=== PATIENT | male | born 1970 | race Caucasian/White ===

== ENCOUNTER 2017-03-17 00:58 | Inpatient (IN) | payer SELFPAY ==
[~2017-03-17] VITALS: Ht 185.4 cm; Wt 141.1 kg
[2017-03-17] MEDS ORDERED: ASPIRIN 81MG TABLET PO STA (01:32)
[2017-03-17 01:55] LABS: DIFFERENTIAL COMMENT 0; EOSINOPHILS % 6.9 % (0.0-5.0); HEMATOCRIT. 34.8 % (42.0-52.0); HEMOGLOBIN. 11.1 g/dL (14.0-18.0); LYMPHOCYTES % 23.5 % (20.0-50.0); MEAN CORPUSCULAR HEMOGLOBIN 25.1 pg (28.0-32.0); MEAN CORPUSCULAR HGB CONC 31.9 g/dL (31.0-37.0); MEAN CORPUSCULAR VOLUME 78.6 fL (80.0-94.0); MEAN PLATELET VOLUME 9.4 fl (7.4-10.4); MONOCYTES % 9.5 % (2.0-8.0); NEUTROPHILS % 59.1 % (40.0-76.0); PLATELET 177 x1000/uL (130-400); RED BLOOD CELL COUNT 4.42 mill/uL (4.7-6.1); RED CELL DISTRIBUTION WIDTH 19.9 % (11.6-14.6); WHITE BLOOD COUNT 3.9 x1000/uL (4.5-11.0)
[2017-03-17 02:02] LABS: INR 1.1; PARTIAL THROMBOPLASTIN TIME 25.4 sec (24.0-34.0); PROTHROMBIN TIME 11.4 sec
[2017-03-17 02:11] LABS: ALANINE AMINOTRANSFERASE 27 IU/L (13-61); ALBUMIN 4.1 g/dL (3.4-5.0); ANION GAP 12; CALCIUM 8.7 mg/dL (8.5-10.1); CARBON DIOXIDE 26 mEq/L (21-32); CHLORIDE 105 mEq/L (98-107); INDEX HEMOLYSI 1 (1-3); INDEX ICTERIC 1 (1-4); INDEX LIPEMIC 1 (1-3); TROPONIN I < 0.02 ng/mL (0.00-0.04); UREA NITROGEN BLOOD 19 mg/dL (7-21); eGFR > 60 mL/min (>60)
[2017-03-17] MEDS ORDERED: NITROGLYCERIN 0.4MG TABLET SL SL PRN (04:30)
[2017-03-17] MEDS ORDERED: ONDANSETRON HCL 4MG/2ML VIAL IV ONE (04:30)
[2017-03-17] MEDS ORDERED: MORPHINE SULFATE 4 MG/ML CPJ (NOT FOR IM USE) IV ONE (04:30)
[2017-03-17 07:45] VITALS: BP 129/78
[2017-03-17 08:00] VITALS: BP 129/78
[2017-03-17] MEDS ORDERED: ISOS60TA4 PO (08:14)
[2017-03-17] MEDS ORDERED: METO50TA5 PO (08:15)
[2017-03-17] MEDS ORDERED: LOV40 SQ (08:16)
[2017-03-17] MEDS ORDERED: WARF10TA21 PO (08:17)
[2017-03-17] MEDS ORDERED: ATOR80TA76 PO (08:17)
[2017-03-17] MEDS: METOPROLOL TARTRATE 25MG TABLET PO SCH (10:00)
[2017-03-17] MEDS ORDERED: ACETAMINOPHEN 325MG TABLET PO PRN (10:15)
[2017-03-17] MEDS ORDERED: DIPHENHYDRAMINE 50MG/ML VIAL IV PRN (10:15)
[2017-03-17] MEDS ORDERED: ONDANSETRON HCL 4MG/2ML VIAL IV PRN (10:15)
[2017-03-17] MEDS ORDERED: MAGNESIUM/ALUMINUM HYDROXIDE/SIMETHICONE 30ML UDC PO PRN (10:15)
[2017-03-17] MEDS ORDERED: CLONIDINE 0.1MG TABLET PO PRN (10:15)
[2017-03-17] MEDS ORDERED: SODIUM CHLORIDE 0.9% 10ML VIAL ONE (10:35)
[2017-03-17] MEDS ORDERED: IOHEXOL-350 100 ML BOTTLE ONE (10:35)
[2017-03-17] MEDS: ISOSORBIDE MONONITRATE 60MG TABLET SR 24HR PO SCH (10:37)
[2017-03-17] MEDS: ENOXAPARIN 150MG/ML SYR SUBCUT SCH ×2 (10:38→21:17)
[2017-03-17 12:00] VITALS: BP 92/43
[2017-03-17 12:25] LABS: MAGNESIUM 2.1 mg/dL (1.8-2.4)
[2017-03-17] MEDS: SODIUM CHLORIDE 0.9% INJ 3ML FLUSH IVF SCH ×2 (14:00→21:17)
[2017-03-17] MEDS ORDERED: REGADENOSON 0.4 MG/5 ML IV NR (14:30)
[2017-03-17] MEDS: MORPHINE SULFATE 4 MG/ML CPJ (NOT FOR IM USE) IV PRN (15:57)
[2017-03-17 16:00] VITALS: BP 111/67
[2017-03-17] MEDS ORDERED: WARFARIN SODIUM 10MG TABLET PO NR (18:00)
[2017-03-17 20:00] VITALS: BP 111/53
[2017-03-17] MEDS ORDERED: TEMAZEPAM 15MG CAPSULE PO PRN (21:15)
[2017-03-17] MEDS: ATORVASTATIN CALCIUM 40MG TABLET PO SCH (21:16)
[2017-03-18] VITALS: BP 90/59
[2017-03-18 04:00] VITALS: BP 107/71
[2017-03-18] MEDS: MORPHINE SULFATE 4 MG/ML CPJ (NOT FOR IM USE) IV PRN ×2 (04:33→17:04)
[2017-03-18 05:44] LABS: INR 1.1; PROTHROMBIN TIME 11.4 sec
[2017-03-18] MEDS: SODIUM CHLORIDE 0.9% INJ 3ML FLUSH IVF SCH ×3 (06:10→20:41)
[2017-03-18 06:27] LABS: ANION GAP 12; CALCIUM 8.2 mg/dL (8.5-10.1); CARBON DIOXIDE 28 mEq/L (21-32); CHLORIDE 104 mEq/L (98-107); HDL CHOLESTEROL 33 mg/dL (40-59); INDEX HEMOLYSI 1 (1-3); INDEX ICTERIC 1 (1-4); INDEX LIPEMIC 1 (1-3); LDL CHOLESTEROL 60 mg/dL (5-100); MAGNESIUM 2.2 mg/dL (1.8-2.4); NT PRO B-TYPE NATRIURETIC PEP 33 pg/mL (5-125); TRIGLYCERIDE 43 mg/dL (0-150); TROPONIN I < 0.02 ng/mL (0.00-0.04); UREA NITROGEN BLOOD 18 mg/dL (7-21); eGFR > 60 mL/min (>60)
[2017-03-18 06:46] LABS: CLARITY URINE CLEAR (CLEAR); COLOR URINE YELLOW (YELLOW); GLUCOSE URINE NEGATIVE (NEGATIVE); KETONES URINE NEGATIVE (NEGATIVE); LEUKOCYTE ESTERASE URINE NEGATIVE (NEGATIVE); NITRITE URINE NEGATIVE (NEGATIVE); OCCULT BLOOD URINE NEGATIVE (NEGATIVE); PH URINE 5.5 (4.5-8.0); PROTEIN URINE NEGATIVE (NEGATIVE); SPECIFIC GRAVITY URINE 1.021 (1.005-1.030); UROBILINOGEN URINE 0.2 E.U./dL (0.2-1.0)
[2017-03-18 06:53] LABS: BASOPHILS % 0.6 % (0.0-2.0); DIFFERENTIAL COMMENT 0; EOSINOPHILS % 8.7 % (0.0-5.0); HEMATOCRIT. 32.7 % (42.0-52.0); HEMOGLOBIN. 10.5 g/dL (14.0-18.0); LYMPHOCYTES % 25.2 % (20.0-50.0); MEAN CORPUSCULAR HEMOGLOBIN 24.9 pg (28.0-32.0); MEAN CORPUSCULAR VOLUME 77.8 fL (80.0-94.0); MEAN PLATELET VOLUME 10.1 fl (7.4-10.4); MONOCYTES % 11.7 % (2.0-8.0); NEUTROPHILS % 53.8 % (40.0-76.0); PLATELET 157 x1000/uL (130-400); RED CELL DISTRIBUTION WIDTH 19.7 % (11.6-14.6); WHITE BLOOD COUNT 3.3 x1000/uL (4.5-11.0)
[2017-03-18 07:18] LABS: *AMPHETAMINES SCREEN URINE NEGATIVE (NEGATIVE); *BARBITURATES SCREEN URINE NEGATIVE (NEGATIVE); *BENZODIAZEPINES SCREEN URINE NEGATIVE (NEGATIVE); *COCAINE SCREEN URINE NEGATIVE (NEGATIVE); CANNABINOID URINE SCREEN NEGATIVE (NEGATIVE); ECSTASY MDMA SCREEN URINE NEGATIVE (NEGATIVE); METHADONE URINE SCREEN NEGATIVE (NEGATIVE); OPIATES URINE SCREEN PRESUMTIVE POSITIVE (NEGATIVE); PHENCYCLIDINE URINE SCREEN NEGATIVE (NEGATIVE)
[2017-03-18 08:00] VITALS: BP 102/76
[2017-03-18] MEDS ORDERED: REGADENOSON 0.4 MG/5 ML IV ONE (08:59)
[2017-03-18] MEDS: METOPROLOL TARTRATE 25MG TABLET PO SCH (09:00)
[2017-03-18] MEDS: ISOSORBIDE MONONITRATE 60MG TABLET SR 24HR PO SCH (09:00)
[2017-03-18] MEDS: ENOXAPARIN 150MG/ML SYR SUBCUT SCH ×2 (11:21→20:45)
[2017-03-18 12:00] VITALS: BP 107/61
[2017-03-18 15:59] LABS: CREATINE KINASE 222 IU/L (39-308); CREATINE KINASE MB FRACTION 2.8 ng/mL (0.5-3.6); INDEX HEMOLYSI 1 (1-3); TROPONIN I < 0.02 ng/mL (0.00-0.04)
[2017-03-18 16:00] VITALS: BP 111/75
[2017-03-18] MEDS ORDERED: WARFARIN SODIUM 10MG TABLET PO SCH (18:00)
[2017-03-18 20:00] VITALS: BP 106/64
[2017-03-18] MEDS: ATORVASTATIN CALCIUM 40MG TABLET PO SCH (20:42)
[2017-03-18 23:26] LABS: CREATINE KINASE 215 IU/L (39-308); CREATINE KINASE MB FRACTION 2.6 ng/mL (0.5-3.6); INDEX HEMOLYSI 1 (1-3); TROPONIN I < 0.02 ng/mL (0.00-0.04)
[2017-03-19] VITALS: BP 133/84
[2017-03-19] MEDS: MORPHINE SULFATE 4 MG/ML CPJ (NOT FOR IM USE) IV PRN ×2 (00:31→11:29)
[2017-03-19 04:00] VITALS: BP 110/66
[2017-03-19] MEDS: SODIUM CHLORIDE 0.9% INJ 3ML FLUSH IVF SCH ×2 (06:22→14:10)
[2017-03-19 06:54] LABS: INR 1.2; PROTHROMBIN TIME 12.6 sec
[2017-03-19 08:00] VITALS: BP_SYST 111; BP_SYST 112; BP_DIAS 64; BP_DIAS 66
[2017-03-19] MEDS: ISOSORBIDE MONONITRATE 60MG TABLET SR 24HR PO SCH (09:00)
[2017-03-19] MEDS: METOPROLOL TARTRATE 25MG TABLET PO SCH ×2 (09:00→14:07)
[2017-03-19] MEDS: ENOXAPARIN 150MG/ML SYR SUBCUT SCH (11:26)
[2017-03-19 11:43] VITALS: BP 103/65
[2017-03-19 14:17] VITALS: BP 124/69
[2017-03-19] MEDS ORDERED: WARFARIN SODIUM 10MG TABLET PO SCH (18:00)
== END 2017-03-19 15:20 | disposition home or self-care (01) | DRG 198 ==
LOC: ER 00:59 → 7WST 05:28
PROVIDERS: ADMIT Internal Medicine; ATTEND Internal Medicine
DX: I24.9 Acute ischemic heart disease, unspecified (principal); I11.0 Hypertensive heart disease with heart failure; D68.2 Hereditary deficiency of other clotting factors; Z68.41 Body mass index [BMI] 40.0-44.9, adult; I50.40 Unspecified combined systolic (congestive) and diastolic (congestive) heart failure; E66.01 Morbid (severe) obesity due to excess calories; F41.9 Anxiety disorder, unspecified; I25.10 Atherosclerotic heart disease of native coronary artery without angina pectoris; E78.00 Pure hypercholesterolemia, unspecified; I25.2 Old myocardial infarction; Z86.718 Personal history of other venous thrombosis and embolism; Z86.73 Personal history of transient ischemic attack (TIA), and cerebral infarction without residual deficits; Z95.5 Presence of coronary angioplasty implant and graft; Z82.3 Family history of stroke; Z86.711 Personal history of pulmonary embolism; Z87.891 Personal history of nicotine dependence; Z88.0 Allergy status to penicillin; Z88.2 Allergy status to sulfonamides; Z79.82 Long term (current) use of aspirin; Z79.01 Long term (current) use of anticoagulants
CPT/HCPCS: 36415; 71010; 71275; 78452; 80048; 80053; 80061; 80305; 81003; 82270; 82550; 82553; 83735; 83880; 84443; 84484; 85025; 85610; 85730; 93005; 93017; 93306; 93970; 96374; 96375; 99285; A4216; A9500; J1650; J2270; J2405; J2785; Q9967